=== PATIENT | female | born 1995 | race Caucasian/White ===

== ENCOUNTER 2017-03-28 13:21 | Emergency (ER) | payer BC | END 2017-03-28 13:59 | disposition left against medical advice (07) | LOC: UCCORT 13:21 | DX: H92.02 Otalgia, left ear (principal); Z53.21 Procedure and treatment not carried out due to patient leaving prior to being seen by health care provider ==

== ENCOUNTER 2017-10-04 13:31 | Emergency (ER) | payer BC ==
--- OUTSIDE RECORDS SUMMARY | 2017-10-04 16:36 | XMS REPORT ---
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 Payers Type Date Identification Numbers Payment Provider Subscriber Commercial Policy Number: [id number] Lionel ARANGO [facility] Michael Donato Group Number: [id number] PO Box Group Name: [id number] PayID: [id number] Problems Date Description Provider Status Onset: 09/29/2017 Essential hypertension Kareem Rico MD Active Onset: 09/29/2017 Headache Kareem Rico MD Active Family History Date Family Member(s) Problem(s) Comments General Breast Cancer General Diabetes General Heart Disease General Hypertension General Thyroid Disease Father Thyroid Disease Mother Diabetes Maternal Grandfather Heart Disease Maternal Grandfather Hypertension Maternal Grandmother Breast Cancer Maternal Grandmother Diabetes Maternal Grandmother Heart Disease Social History Type Date Description Comments Marital Status Single 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-Handed ETOH Use Rarely consumes alcohol ETOH Use Rarely consumes wine ETOH Use Rarely consumes liquor Recreational Drug Use Regularly uses Marijuana Smoking Patient has never smoked Daily Caffeine Consumes on average 2 cups of regular coffee per day Daily Caffeine Consumes on average 2 sodas per day Daily Caffeine Consumes on average 2 cups of hot tea per day Allergies, Adverse Reactions, Alerts Date Description Reaction Status Severity Comments 09/29/2017 Amoxicillin active hives 09/29/2017 Aleve active hives 09/29/2017 Azithromycin active hives 09/29/2017 Penicillin active hives Medications Medication Date Status Form Strength Qnty SIG Indications Ordering Provider Pantoprazole Active Tablets DR 40mg Unknown Sodium 00 Clonidine HCL Active Tablets 0.2mg Liyah Aragon MD Quetiapine Active Tablets ER 400mg Mahesh, Fumarate ER 00 24HR MD Caitlin Lamotrigine Active Tablets 100mg Mahesh, 00 MD Caitlin Desvenlafaxine Active Tablets ER 100mg Mahesh, Succinate ER 00 24HR MD Caitlin Hydrocodone-Acetam Active Tablets 5-325mg Feliu, Heri inophen 00 Ibuprofen Hx Tablets 800mg Miladys, Liyah Jenkins MD 09/29/19 18 Vital Signs Date Vital Result Comment 09/29/2017 Height 65 inches 5'5" Weight 290.00 lb BMI (Body Mass Index) 48.3 kg/m2 BP Systolic 137 mmHg BP Diastolic 83 mmHg Heart Rate 88 /min Body Temperature 97.3 F Respiratory Rate 18 /min Results Description No Information Procedures Date CPT Code Description Status 09/22/2017 72606 Electrocardiogram Interpretation & Report Only Completed 09/08/2017 34104 Echocardiography, Tranthoracic Real-Time Image Completed Documentation 09/08/2017 32425 Electrocardiogram Interpretation & Report Only Completed Encounters Type Date Location Provider CPT E/M Dx Office Visit 09/29/2017 [facility] [place] [place] [address] R51 2:00p [facility] G93.89 I10 F32.9 F41.9 J45.909 M79.7 Plan of Care 09/29/2017 - Kareem Rico MDR51 HeadacheComments:This is a 22-year-old right -handed morbidly obese female with a short history of occipital headaches. 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 However, I explained to her and her parents that there is no way to know for certain what this lesion is based upon radiological imaging. Therefore, I believe the lesion should be resected for definitivediagnosis. I took them through the operation from beginning to end. I explained the use of neuro navigation. I also discussed the increased risk because of the transverse sinus/torcular area lying directly deep to this lesion. I reviewed the risks that include, but are not limited to bleeding, infection, stroke, seizure, residual lesion, anesthesia risk, medical complications and . They asked appropriate questions that were answered to their satisfaction. She would like to proceed with the operation. I will try to get preoperative clearance from her primary care doctor Dr. Christian as well as from her psychiatrist. I will try to get this scheduled at my next earliest convenience.Follow up:OR??left occipital skull lesion resection. Preoperative clearance by her PCP Dr. Christian and her psychiatrist.G93.89 Other specified disorders of [id number] Essential (primary) ljurvletlihqN95.9 Major depressive disorder, single episode, asktpqagrqdR80.9 Anxiety disorder, qyosfwdrgwyT15.909 Unspecified asthma, rmdsoeivlhzneN67.7 Fibromyalgia
[2017-10-04 16:43] VITALS: BP 157/91
--- NOTE | 2017-10-04 17:08 | UC ---
Throat Pain/Nasal Roshan HPI - HPI Summary HPI Summary: Pt c/o sore throat, fever,chills, body aches X 1 week. Pt is scheduled to have surgery on 10/16/17. - History of Current Complaint Chief Complaint: UCGeneralIllness Stated Complaint: SORE THROAT Time Seen by Provider: 10/04/17 16:29 Hx Obtained From: Patient ?: No Onset/Duration: Gradual Onset, Lasting Days, Still Present Severity: Mild Pain Intensity: 6 Associated Signs & Symptoms: Positive: Dysphagia, Fever - Epiglottits Risk Factors Epiglottis Risk Factors: Negative - Allergies/Home Medications Allergies/Adverse Reactions: Allergies Allergy/AdvReac Type Severity Reaction Status Date / Time MS Azithromycin Allergy Hives Verified 10/04/17 16:43 [From Zithromax] MS Cefuroxime [From Ceftin] Allergy Hives Verified 10/04/17 16:43 MS Levofloxacin Allergy Hives Verified 10/04/17 16:43 [From Levaquin] MS Naproxen [From Aleve] Allergy Hives Verified 10/04/17 16:43 Home Medications: Home Medications Desvenlafaxine(NF) [Pristiq(NF)] 200 mg PO DAILY 10/04/17 [History Confirmed 12/16] PMH/Surg Hx/FS Hx/Imm Hx Previously Healthy: Yes - has brain tumor, - Surgical History Surgical History: Yes Surgery Procedure, Year, and Place: SINUS. ANXIETY. POLYCYSTIC OVARIAN SYNDOME. 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 Lives: With Family Alcohol Use: Occasionally Substance Use Type: Marijuana Smoking Status (MU): Never Smoked Tobacco Have You Smoked in the Last Year: Yes - marijuana Review of Systems Constitutional: Fever, Chills Skin: Negative Eyes: Negative ENT: Sore Throat Respiratory: Negative Cardiovascular: Negative Gastrointestinal: Negative Genitourinary: Negative Motor: Negative Neurovascular: Negative Musculoskeletal: Negative Neurological: Headache Psychological: Negative Is Patient Immunocompromised?: No All Other Systems Reviewed And Are Negative: Yes Physical Exam Triage Information Reviewed: Yes Appearance: Well-Appearing Vital Signs: Initial Vital Signs Temp 98.6 F 10/04/17 16:38 Pulse 106 10/04/17 16:38 Resp 16 10/04/17 16:38 BP 157/91 10/04/17 16:38 Pulse Ox 100 10/04/17 16:38 Vital Signs Reviewed: Yes Eye Exam: Normal ENT Exam: Normal Dental Exam: Normal Neck exam: Normal Respiratory Exam: Normal Cardiovascular Exam: Normal Musculoskeletal Exam: Normal Neurological Exam: Normal Psychological Exam: Normal Skin Exam: Normal Diagnostics - Laboratory Diagnostic Studies Completed/Ordered: RApid flu: rapid strep: Throat Pain/Nasal Course/Dx - Differential Dx/Diagnosis Differential Diagnosis/HQI/PQRI: Influenza, Pharyngitis, URI Provider Diagnoses: viral syndrome. sore throat Discharge - Discharge Plan Condition: Stable Disposition: HOME Patient Education Materials: Viral Syndrome (ED) Referrals: MARILYN Elizabeth [Primary Care Provider] - If Needed Additional Instructions: Please follow up with your PCP or return to clinic as needed
== END 2017-10-04 17:20 | disposition home or self-care (01) ==
LOC: UCCORT 13:31
DX: B34.9 Viral infection, unspecified (principal); J02.9 Acute pharyngitis, unspecified; F32.9 Major depressive disorder, single episode, unspecified; D49.6 Neoplasm of unspecified behavior of brain; F12.90 Cannabis use, unspecified, uncomplicated; Z88.6 Allergy status to analgesic agent; Z88.3 Allergy status to other anti-infective agents
CPT/HCPCS: 87502; 87651; 99211; G0463

== ENCOUNTER 2017-11-08 18:04 | Emergency (ER) | payer BC ==
--- OUTSIDE RECORDS SUMMARY | 2017-11-08 18:55 | XMS REPORT ---
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 Right-Handed ETOH Use Rarely [...] Form Strength Qnty SIG Indications Ordering Provider Tylenol Extra Active Tablets 500mg take Alvino, Strength 018 needed Eugenia, for pain RNNP Pantoprazole Active Tablets 40mg Unknown Sodium [address] Clonidine HCL Active Tablets 0.2mg Mahesh, 000 MD Caitlin Quetiapine Active Tablets 400mg Mahesh, Fumarate ER 000 ER 24HR MD Caitlin Lamotrigine Active Tablets 100mg Mahesh, 000 MD Caitlin Desvenlafaxine Active Tablets 100mg Mahesh, Succinate ER 000 ER 24HR MD Caitlin Hydrocodone-Aceta Active Tablets 5-325mg 30tabs take 1 Alvino, minophen 000 by mouth Eugenia, every 12 RNNP hours needed Ibuprofen Hx Tablets 800mg Fernie Hook MD 018 Vital Signs Date Vital Result Comment 10/27/2017 Height 65 inches 5'5" Weight 295.00 lb BMI (Body Mass Index) 49.1 kg/m2 BP Systolic 144 mmHg BP Diastolic 91 mmHg Heart Rate 98 /min Body Temperature 97.2 F Respiratory Rate 18 /min 09/29/2017 Height 65 inches 5'5" Weight 290.00 lb BMI (Body Mass Index) 48.3 kg/m2 BP Systolic 137 mmHg BP Diastolic 83 mmHg Heart Rate 88 /min Body Temperature 97.3 F Respiratory Rate 18 /min Results Description No Information Procedures Date CPT Code Description Status 10/16/2017 48528 Stereotactic Computer-Assisted, Cranial, Extradural Completed 10/16/2017 63731 Craniectomy Excision Tumor/Lesion Skull Completed 10/16/2017 79238 Craniectomy Excision Tumor/Lesion Skull Completed 09/22/2017 78967 Electrocardiogram Interpretation & Report Only Completed 09/08/2017 20351 Echocardiography, Tranthoracic Real-Time Image Completed Documentation 09/08/2017 11934 Electrocardiogram Interpretation & Report Only Completed Encounters Type Date Location Provider CPT E/M Dx Office Visit 09/29/2017 [facility] Neurosurgery @ [place] [address] R51 2:00p [facility] G93.89 I10 F32.9 F41.9 J45.909 M79.7 Office Visit 09/22/2017 6:03p [facility] Neurosurgery Cezar Santos PA-C 05047 R90.0 R51 Plan of Care Future Appointment(s):11/03/2017 9:20 am - Eugenia De Oliveira RNNP at [facility] Neurosurgery @ [facility]10/27/2017 - Eugenia De Oliveira RNNPD16.4 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
--- OUTSIDE RECORDS SUMMARY | 2017-11-08 18:55 | XMS REPORT ---
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[employer] Hand Dominance Right-Handed ETOH Use Rarely consumes [...] 018 Vital Signs Date Vital Result Comment 11/03/2017 Height 65 inches 5'5" Weight 295.00 lb BMI (Body Mass Index) 49.1 kg/m2 BP Systolic 142 mmHg BP Diastolic 87 mmHg Heart Rate 94 /min Body Temperature 97.1 F Respiratory Rate 18 /min 10/27/2017 Height 65 inches 5'5" Weight 295.00 [...] Procedures Date CPT Code Description Status 10/16/2017 68881 Stereotactic Computer-Assisted, Cranial, Extradural Completed 10/16/2017 70342 Craniectomy Excision Tumor/Lesion Skull Completed 10/16/2017 63218 Craniectomy Excision Tumor/Lesion Skull Completed 09/22/2017 34113 Electrocardiogram Interpretation & Report Only Completed 09/08/2017 34578 Echocardiography, Tranthoracic Real-Time Image Completed Documentation 09/08/2017 95281 Electrocardiogram Interpretation & Report Only Completed Encounters Type Date Location Provider CPT E/M Dx Office Visit 09/29/2017 [facility] [place] [address] R51 2:00p [facility] G93.89 I10 F32.9 F41.9 J45.909 M79.7 Office Visit 09/22/2017 6:03p [facility] Cezar Santos PA-C 29351 R90.0 R51 Plan of Care No Information Available
[2017-11-08 19:04] VITALS: BP 146/76
--- NOTE | 2017-11-08 19:24 | UC ---
UC General HPI - HPI Summary HPI Summary: Patient is currently on antibiotics for a surgical incision in the back of the head. she has felt shaky, achy and run down for the past two ddays. did have the stomach bug last week. - History of Current Complaint Chief Complaint: UCRespiratory Stated Complaint: ACHY COUGH SHAKY Time Seen by Provider: 11/08/17 18:59 Hx Obtained From: Patient Hx Last Menstrual Period: 10/14/17 Onset/Duration: Sudden Onset, Lasting Days - 2 Timing: Constant Onset Severity: Moderate Current Severity: Moderate Pain Intensity: 7 Associated Signs & Symptoms: Positive: Cough, Headache, Other - sore throat - Allergy/Home Medications Allergies/Adverse Reactions: Allergies Allergy/AdvReac Type Severity Reaction Status Date / Time MS Azithromycin Allergy Hives Verified 10/04/17 16:43 [From Zithromax] MS Cefuroxime [From Ceftin] Allergy Hives Verified 10/04/17 16:43 MS Levofloxacin Allergy Hives Verified 10/04/17 16:43 [From Levaquin] MS Naproxen [From Aleve] Allergy Hives Verified 10/04/17 16:43 Home Medications: Home Medications D-Methorphan/PE/Acetaminophen [Day Time Cold-Flu Relief Liq] 177 ml PO DAILY 07/18 [History Confirmed 11/08/17] PMH/Surg Hx/FS Hx/Imm Hx Previously Healthy: Yes - Surgical History Surgical History: Yes Surgery Procedure, Year, and Place: SINUS. ANXIETY. POLYCYSTIC OVARIAN SYNDOME. DEPRESSION - Family History Known Family History: Positive: Cardiac Disease, Hypertension, Diabetes - Social History Alcohol Use: Occasionally Substance Use Type: Marijuana Smoking Status (MU): Never Smoked Tobacco Have You Smoked in the Last Year: Yes - marijuana Review of Systems Constitutional: Chills, Fatigue Skin: Negative Eyes: Negative ENT: Sore Throat Respiratory: Cough Cardiovascular: Negative Gastrointestinal: Negative Genitourinary: Negative Motor: Negative Neurovascular: Negative Musculoskeletal: Arthralgia, Myalgia Neurological: Headache Psychological: Negative Is Patient Immunocompromised?: No All Other Systems Reviewed And Are Negative: Yes Physical Exam Triage Information Reviewed: Yes Appearance: Well-Nourished, Ill-Appearing, Pain Distress Vital Signs: Initial Vital Signs Temp 98.6 F 11/08/17 18:54 Pulse 102 11/08/17 18:54 Resp 20 11/08/17 18:54 BP 146/76 11/08/17 18:54 Pulse Ox 100 11/08/17 18:54 Vital Signs Reviewed: Yes Eye Exam: Normal ENT: Positive: Nasal congestion, TM bulging, Other - oral thrush noted Dental Exam: Normal Neck exam: Normal Neck: Positive: Supple, Nontender, No Lymphadenopathy Respiratory Exam: Normal Respiratory: Positive: Chest non-tender, Lungs clear, Normal breath sounds Cardiovascular Exam: Normal Cardiovascular: Positive: No Murmur, Pulses Normal, Tachycardia Abdominal Exam: Normal Abdomen Description: Positive: Nontender, No Organomegaly, Soft Bowel Sounds: Positive: Present Musculoskeletal Exam: Normal Musculoskeletal: Positive: Strength Intact, ROM Intact, No Edema Neurological Exam: Normal Neurological: Positive: Alert, Muscle Tone Normal Psychological Exam: Normal Skin: Positive: significant lesion(s) - well adhered, non red nontender surgical incision at back os scalp. 2 conrad present Course/Dx - Course Course Of Treatment: hx obtained, exam performed ,meds reviewed, rapid flu obtained, treated for thrush - Differential Dx - Multi-Symptom Provider Diagnoses: oral thrush. viral syndrome Discharge - Discharge Plan Condition: Stable Disposition: HOME Prescriptions: Nystatin SUSPENSION* 5 ml MT QID #140 ml Patient Education Materials: Oral Candidiasis (ED) Referrals: MARILYN Elizabeth [Primary Care Provider] - Additional Instructions: 1. Get plenty of rest 2. INcrease fluid intake. 3. Use the nystatin for the thrush. 4. Your incision looks good. 5. I recommend a lactobaccilus or any good probiotic to take with your antibiotic.
== END 2017-11-08 19:43 | disposition home or self-care (01) ==
LOC: UCCORT 18:04
DX: B37.0 Candidal stomatitis (principal); B34.9 Viral infection, unspecified; Z88.6 Allergy status to analgesic agent; Z88.1 Allergy status to other antibiotic agents
CPT/HCPCS: 87502; 99212; G0463

== ENCOUNTER 2019-11-19 10:14 | Emergency (ER) | payer BC ==
[2019-11-19 12:33] VITALS: BP 116/65
--- NOTE | 2019-11-19 12:33 | UC ---
Throat Pain/Nasal Roshan HPI - HPI Summary HPI Summary: sore throat x 1 day pain is 8 out 10 , worse with swallowing , better with Tylenol fever, chills , body aches denies any cough , no chest pain , no chest congestion - History of Current Complaint Chief Complaint: UCGeneralIllness Stated Complaint: ST, BODY ACHES Time Seen by Provider: 11/19/19 12:14 Hx Obtained From: Patient Hx Last Menstrual Period: 10/2019 ?: No Onset/Duration: Gradual Onset, Lasting Days - 1, Still Present Severity: Moderate Pain Intensity: 8 Cough: None Associated Signs & Symptoms: Positive: Fever. Negative: Wheezing, Sinus Discomfort, Nasal Discharge, Rash - Allergies/Home Medications Allergies/Adverse Reactions: Allergies Allergy/AdvReac Type Severity Reaction Status Date / Time azithromycin Allergy Hives Verified 11/19/19 12:11 cefuroxime Allergy Hives Verified 11/19/19 12:11 levofloxacin Allergy Hives Verified 11/19/19 12:11 naproxen Allergy Hives Verified 11/19/19 12:11 Home Medications: Home Medications Pantoprazole TAB * [Protonix TAB*] 40 mg PO DAILY 04/07/16 [History Confirmed ] QUEtiapine XR TAB* [Seroquel Xr 300 MG TAB*] 800 mg PO BEDTIME 04/07/16 [ History Confirmed 11/19/19] Acetaminophen [Tylenol Extra Strength] 1,000 mg PO ONCE 11/19/19 [History Confirmed 11/19/19] Cefdinir [Cefdinir 300 MG CAP] 300 mg PO BID #20 capsule 11/19/19 [Rx] DULoxetine DR CAP* [Cymbalta CAP*] 60 mg PO BID 11/19/19 [History Confirmed ] lamoTRIgine TAB(*) [LaMICtal TAB(*)] 200 mg PO BEDTIME 11/19/19 [History Confirmed 11/19/19] PMH/Surg Hx/FS Hx/Imm Hx - Additional Past Medical History Additional PMH: PCOD Cardiovascular History: Hypertension Respiratory History: Asthma Psychological History: Anxiety - Surgical History Surgical History: Yes Surgery Procedure, Year, and Place: Craniotomy 10/16/17. SINUS - Family History Known Family History: Positive: Cardiac Disease, Hypertension, Diabetes - Social History Alcohol Use: Occasionally Substance Use Type: Marijuana Substance Use Comment - Amount & Last Used: occasional Smoking Status (MU): Never Smoked Tobacco Have You Smoked in the Last Year: - marijuana Review of Systems All Other Systems Reviewed And Are Negative: Yes Constitutional: Positive: Fever, Chills, Fatigue Skin: Positive: Negative Eyes: Positive: Negative ENT: Positive: Sore Throat Respiratory: Positive: Negative Is Patient Immunocompromised?: No Physical Exam Triage Information Reviewed: Yes Appearance: Well-Appearing, No Pain Distress, Well-Nourished Vital Signs Reviewed: Yes Eye Exam: Normal Eyes: Positive: Conjunctiva Clear ENT: Positive: Normal ENT inspection, Hearing grossly normal, Pharyngeal erythema, Tonsillar swelling, Tonsillar exudate. Negative: Nasal congestion, Nasal drainage Respiratory Exam: Normal Respiratory: Positive: Chest non-tender, Lungs clear, Normal breath sounds Cardiovascular: Positive: No Murmur, Tachycardia Skin Exam: Normal Throat Pain/Nasal Course/Dx - Differential Dx/Diagnosis Provider Diagnosis: Strep pharyngitis Discharge ED - Sign-Out/Discharge Documenting (check all that apply): Patient Departure All imaging exams completed and their final reports reviewed: No Studies - Discharge Plan Condition: Stable Disposition: HOME Prescriptions: Cefdinir [Cefdinir 300 MG CAP] 300 mg PO BID #20 capsule Patient Education Materials: Strep Throat (ED) Referrals: MARILYN Elizabeth [Primary Care Provider] - If Needed - Billing Disposition and Condition Condition: STABLE Disposition: Home
== END 2019-11-19 12:58 | disposition home or self-care (01) ==
LOC: UCCORT 10:14
DX: J02.0 Streptococcal pharyngitis (principal); I10 Essential (primary) hypertension; F41.9 Anxiety disorder, unspecified; Z79.899 Other long term (current) drug therapy; Z88.6 Allergy status to analgesic agent; Z88.1 Allergy status to other antibiotic agents
CPT/HCPCS: 87651; 99212; G0463